=== PATIENT | male | born 1990 | race Two or more races ===

== ENCOUNTER 2021-01-25 11:35 | Emergency (ER) | payer OTHER ==
[~2021-01-25] VITALS: Ht 175.3 cm; Wt 68.2 kg
[2021-01-25] MEDS ORDERED: IBUPROFEN 800 MG TABLET PO ONE (12:30)
[2021-01-25 15:23] VITALS: BP 135/87
== END 2021-01-25 15:25 | disposition home or self-care (01) ==
LOC: EMS 11:50
DX: S92.115A Nondisplaced fracture of neck of left talus, initial encounter for closed fracture (principal); S82.62XA Displaced fracture of lateral malleolus of left fibula, initial encounter for closed fracture; W22.01XA Walked into wall, initial encounter; Y93.39 Activity, other involving climbing, rappelling and jumping off; Y92.89 Other specified places as the place of occurrence of the external cause; Y99.8 Other external cause status
CPT/HCPCS: 29515; 73700; 99284